=== PATIENT | male | born 1990 | race Caucasian/White ===

== ENCOUNTER 2022-03-16 12:20 | Emergency (ER) | payer SELFPAY ==
[~2022-03-16] VITALS: Ht 175.3 cm; Wt 108.9 kg
[2022-03-16] MEDS ORDERED: CLINDAMYCIN PHOSPHATE 600 MG/4 ML VIAL ONE (12:44)
[2022-03-16] MEDS ORDERED: IV NORMAL SALINE 1000 ML BAG IV ONE (12:45)
[2022-03-16] MEDS ORDERED: KETOROLAC TROMETHAMINE 15 MG INJ IVP ONE (12:45)
[2022-03-16] MEDS ORDERED: CLINDAMYCIN PHOSPHATE IV 600 MG in IV DEXTROSE 5% 100 ML IV ONE (12:45)
[2022-03-16] MEDS ORDERED: KETOROLAC TROMETHAMINE 15 MG INJ ONE (13:11)
[2022-03-16 13:21] LABS: HEMATOCRIT 43.9 % (36.7-47.1); MEAN CORPUSCULAR HEMOGLOBIN 29.1 uug (23.8-33.4); MEAN CORPUSCULAR VOLUME 84.5 fL (73.0-96.2); PLATELET COUNT (AUTO) 437 K/uL (152-348)
[2022-03-16 13:24] LABS: BILIRUBIN,DIRECT 0.1 mg/dL (0.0-0.2); BILIRUBIN,TOTAL 0.5 mg/dL (0.2-1.0); CREATININE 0.9 mg/dL (0.6-1.3); TOTAL PROTEIN, SERUM 8.8 g/dL (6.4-8.2)
[2022-03-16] MEDS ORDERED: CLIN300C12 PO (13:39)
[2022-03-16] MEDS ORDERED: COLL30OI TP (13:39)
--- NOTE | 2022-03-16 13:45 | NUR ---
Still no urine, notified.
--- NOTE | 2022-03-16 13:59 | NUR ---
IV removed. Catheter intact and site benign. Pressure and 4x4 gauze applied to site. No bleeding noted. Patient discharged to home in stable condition. Written and verbal after care instructions given. Patient verbalized understanding and compliance of instructions. Stressed follow up with primary doctor/[facility]/clinics or return to ER for worsening s/s.
== END 2022-03-16 14:18 | disposition home or self-care (01) ==
LOC: ER 12:20
DX: S81.802D Unspecified open wound, left lower leg, subsequent encounter (principal); L03.116 Cellulitis of left lower limb; W22.8XXD Striking against or struck by other objects, subsequent encounter; I10 Essential (primary) hypertension; E11.9 Type 2 diabetes mellitus without complications
CPT/HCPCS: 73590; 80048; 80076; 83605; 84145; 85025; 85730; 87040 ×2; 93971; 96365; 99284; J1885; J3490; J7060; 36415; A4663; J7040